=== PATIENT | male | born 1975 | race Caucasian/White ===

== ENCOUNTER 2023-01-19 11:31 | Emergency (ER) | payer MEDICAID ==
[~2023-01-19] VITALS: Ht 182.9 cm; Wt 77.0 kg
[2023-01-19 11:36] VITALS: BP 134/81; PULSE 105; RESP 16; TEMP 98.4; O2SAT 100
[2023-01-19] MEDS ORDERED: PENI500T2 PO (11:56)
== END 2023-01-19 12:11 | disposition home or self-care (01) ==
LOC: ER 11:32
DX: K08.89 Other specified disorders of teeth and supporting structures (principal); K04.7 Periapical abscess without sinus; Z79.2 Long term (current) use of antibiotics
CPT/HCPCS: 99283